=== PATIENT | female | born 1985 | race Two or more races ===

== ENCOUNTER → 2024-04-26 | Outpatient (BNVA) | payer MEDICAID, SELFPAY | END | disposition home or self-care (01) | PROVIDERS: PCP Nurse Practitioner Family; Referring Provider Nurse Practitioner Family; Visit Provider Nurse Practitioner Family | DX: Z76.89 Persons encountering health services in other specified circumstances (principal); E66.9 Obesity, unspecified; Z68.30 Body mass index [BMI] 30.0-30.9, adult; F32.1 Major depressive disorder, single episode, moderate; F41.9 Anxiety disorder, unspecified | CPT/HCPCS: 99213 ==

== ENCOUNTER → 2024-05-24 | Outpatient (BNVA) | payer MEDICAID, SELFPAY | END | disposition home or self-care (01) | PROVIDERS: PCP Nurse Practitioner Family; Referring Provider Nurse Practitioner Family; Visit Provider Nurse Practitioner Family | DX: Z00.01 Encounter for general adult medical examination with abnormal findings (principal); E66.9 Obesity, unspecified; Z68.30 Body mass index [BMI] 30.0-30.9, adult; Z71.3 Dietary counseling and surveillance; Z68.31 Body mass index [BMI] 31.0-31.9, adult; N93.9 Abnormal uterine and vaginal bleeding, unspecified; Z13.220 Encounter for screening for lipoid disorders; Z13.1 Encounter for screening for diabetes mellitus; Z11.3 Encounter for screening for infections with a predominantly sexual mode of transmission | CPT/HCPCS: 99215 ==

== ENCOUNTER → 2024-06-07 | Outpatient (BNVA) | payer MEDICAID, SELFPAY | END | disposition home or self-care (01) | PROVIDERS: PCP Nurse Practitioner Family; Referring Provider Nurse Practitioner Family; Visit Provider Nurse Practitioner Family | DX: E55.9 Vitamin D deficiency, unspecified (principal); Z71.2 Person consulting for explanation of examination or test findings; E78.5 Hyperlipidemia, unspecified; H66.91 Otitis media, unspecified, right ear | CPT/HCPCS: 99213 ==

== ENCOUNTER → 2024-07-05 | Outpatient (BNVA) | payer MEDICAID, SELFPAY | END | disposition home or self-care (01) | PROVIDERS: PCP Nurse Practitioner Family; Referring Provider Nurse Practitioner Family; Visit Provider Nurse Practitioner Family | DX: Z71.3 Dietary counseling and surveillance (principal); E66.9 Obesity, unspecified; Z68.31 Body mass index [BMI] 31.0-31.9, adult | CPT/HCPCS: 99213 ==

== ENCOUNTER → 2024-07-27 | Outpatient (BNVA) | payer MEDICAID, SELFPAY | END | disposition home or self-care (01) | PROVIDERS: PCP Nurse Practitioner Family; Referring Provider Nurse Practitioner Family; Visit Provider Nurse Practitioner Family | DX: N39.0 Urinary tract infection, site not specified (principal); N76.0 Acute vaginitis | CPT/HCPCS: 99215 ==

== ENCOUNTER → 2024-08-02 | Outpatient (BNVA) | payer MEDICAID, SELFPAY | END | disposition home or self-care (01) | PROVIDERS: PCP Nurse Practitioner Family; Referring Provider Nurse Practitioner Family; Visit Provider Nurse Practitioner Family | DX: Z71.3 Dietary counseling and surveillance (principal) | CPT/HCPCS: 99213 ==

== ENCOUNTER → 2024-08-07 | Outpatient (BNVA) | payer MEDICAID, SELFPAY | END | disposition home or self-care (01) | PROVIDERS: PCP Nurse Practitioner Family; Referring Provider Nurse Practitioner Family; Visit Provider Nurse Practitioner Family | DX: Z71.2 Person consulting for explanation of examination or test findings (principal); N76.0 Acute vaginitis | CPT/HCPCS: 99212; G0463 ==

== ENCOUNTER → 2024-08-24 | Outpatient (CLI) | payer MEDICAID, SELFPAY ==
--- NOTE | 2024-08-24 10:30 | XR_ITS ---
Examination: Pelvic ultrasound, transabdominal, complete Technique: Transabdominal ultrasound of the pelvis performed using grayscale imaging Date and time of exam: August 24, 2024 1012 hours INDICATIONS: Vaginal bleeding irregular heavy menses 10 years FINDINGS: Uterus 10.6 cm endometrial stripe 1.5 cm No uterine mass or intrauterine gestation Right ovary 3.4 cm arterial flow Left ovary 3.2 cm arterial flow IMPRESSION: Negative study
== END | disposition home or self-care (01) ==
PROVIDERS: PCP Nurse Practitioner Family; Referring Provider Nurse Practitioner Family; Visit Provider Nurse Practitioner Family
DX: N92.4 Excessive bleeding in the premenopausal period (principal)
CPT/HCPCS: 76856

== ENCOUNTER → 2024-08-30 | Outpatient (BNVA) | payer MEDICAID, SELFPAY | END | disposition home or self-care (01) | PROVIDERS: PCP Nurse Practitioner Family; Referring Provider Nurse Practitioner Family; Visit Provider Nurse Practitioner Family | DX: Z71.2 Person consulting for explanation of examination or test findings (principal); N93.9 Abnormal uterine and vaginal bleeding, unspecified | CPT/HCPCS: 99213 ==

== ENCOUNTER → 2024-08-31 | Outpatient (BNVA) | payer MEDICAID, SELFPAY | END | disposition home or self-care (01) | PROVIDERS: PCP Nurse Practitioner Family; Referring Provider Nurse Practitioner Family; Visit Provider Nurse Practitioner Family | DX: N93.9 Abnormal uterine and vaginal bleeding, unspecified (principal); Z71.2 Person consulting for explanation of examination or test findings | CPT/HCPCS: 99212; G0463 ==

== ENCOUNTER → 2024-09-21 | Outpatient (BNVA) | payer MEDICAID, SELFPAY | END | disposition home or self-care (01) | PROVIDERS: PCP Nurse Practitioner Family; Referring Provider Nurse Practitioner Family; Visit Provider Nurse Practitioner Family | DX: Z71.2 Person consulting for explanation of examination or test findings (principal); E55.9 Vitamin D deficiency, unspecified | CPT/HCPCS: 99212; G0463 ==

== ENCOUNTER → 2024-09-28 | Outpatient (BNVA) | payer MEDICAID, SELFPAY | END | disposition home or self-care (01) | PROVIDERS: PCP Nurse Practitioner Family; Referring Provider Nurse Practitioner Family; Visit Provider Nurse Practitioner Family | DX: Z71.3 Dietary counseling and surveillance (principal); E66.9 Obesity, unspecified; Z68.30 Body mass index [BMI] 30.0-30.9, adult | CPT/HCPCS: 99213 ==

== ENCOUNTER → 2024-10-26 | Outpatient (BNVA) | payer MEDICAID, SELFPAY | END | disposition home or self-care (01) | PROVIDERS: PCP Nurse Practitioner Family; Referring Provider Nurse Practitioner Family; Visit Provider Nurse Practitioner Family | DX: Z71.3 Dietary counseling and surveillance (principal); E66.9 Obesity, unspecified; Z68.29 Body mass index [BMI] 29.0-29.9, adult | CPT/HCPCS: 99213 ==

== ENCOUNTER → 2024-11-08 | Outpatient (BNVA) | payer MEDICAID, SELFPAY | END | disposition home or self-care (01) | PROVIDERS: PCP Nurse Practitioner Family; Referring Provider Nurse Practitioner Family; Visit Provider Nurse Practitioner Family | DX: K59.00 Constipation, unspecified (principal) | CPT/HCPCS: 99212; G0463 ==

== ENCOUNTER → 2024-11-23 | Outpatient (BNVA) | payer MEDICAID, SELFPAY | END | disposition home or self-care (01) | PROVIDERS: PCP Nurse Practitioner Family; Referring Provider Nurse Practitioner Family; Visit Provider Nurse Practitioner Family | DX: Z71.3 Dietary counseling and surveillance (principal); E66.9 Obesity, unspecified; Z68.29 Body mass index [BMI] 29.0-29.9, adult; K59.00 Constipation, unspecified | CPT/HCPCS: 99213 ==

== ENCOUNTER → 2024-11-30 | Outpatient (BNVA) | payer MEDICAID, SELFPAY | END | disposition home or self-care (01) | PROVIDERS: PCP Nurse Practitioner Family; Referring Provider Nurse Practitioner Family; Visit Provider Nurse Practitioner Family | DX: Z12.4 Encounter for screening for malignant neoplasm of cervix (principal) | CPT/HCPCS: 99215; Q0091 ==

== ENCOUNTER → 2024-12-08 | Outpatient (BNVA) | payer MEDICAID, SELFPAY | END | disposition home or self-care (01) | PROVIDERS: PCP Nurse Practitioner Family; Referring Provider Nurse Practitioner Family; Visit Provider Nurse Practitioner Family | DX: J02.9 Acute pharyngitis, unspecified (principal) | CPT/HCPCS: 87804; 87811; 99213 ==

== ENCOUNTER 2024-12-10 12:25 | Emergency (ER) | payer MEDICAID, SELFPAY ==
[2024-12-10 12:26] VITALS: BMI 29.2
[2024-12-10 12:37] VITALS: BP 108/72; PULSE 71; RESP 17; TEMP 37.1; O2SAT 98
--- NOTE | 2024-12-10 12:49 | PD.EDURI ---
Upper Respiratory Inf. RME/HPI General Chief Complaint: Flu Like Symptoms Stated Complaint: SORE THROAT, CHILLS x 2 DAYS Time Seen by Provider: 12/10/24 12:30 Source: patient, RN notes reviewed and old records reviewed Arrival date/time: 12/10/24 12:25 Mode of arrival: ambulatory Limitations: no limitations RME / HPI RME / HPI Narrative: 39yof presents to ED for 3-day history of URI symptoms. Patient c/o congestion, cough, sore throat and headache. Son currently has similar symptoms and was recently treated for strep. No fever, shortness of breath, chest pain, nausea/vomiting or dizziness reported. Patient was evaluated in PCP clinic 2 days ago, tested negative for COVID/flu at that time. Patient states she is currently taking a Z-Richard for recent strep exposure. Ibuprofen also taken with mild relief Related Data Previous Rx's ?Medication ?Instructions ?Recorded tirzepatide (weight loss) 12.5 12.5 mg (0.5 mL) subcut QWEEK 4 11/23/24 mg/0.5 mL subcutaneous pen weeks #2 mL injector (Zepbound) azithromycin 250 mg tablet See Rx Instructions PO .COMPLEX #6 12/08/24 tabs fluticasone propionate 50 2 spray intranasal QDAY PRN 12/08/24 mcg/actuation nasal allergy symptoms 30 days #16 grams spray,suspension (Flonase Allergy Relief) guaifenesin 1,200 mg tablet, 1,200 mg PO BID PRN cough 7 days 12/08/24 extended release 12 hr (Mucinex) #14 tabs ibuprofen 600 mg tablet 600 mg PO Q8H PRN fever or pain 12/08/24 #30 tabs acetaminophen 500 mg tablet 1,000 mg (2 x 500 mg) PO Q6H PRN 12/10/24 (Tylenol Extra Strength) pain #30 tabs dextromethorphan-guaifenesin ER 60 1 tab PO Q12H PRN congestion/cough 12/10/24 mg-1,200 mg tab,extend #14 tabs release,12hr (Mucinex DM) fluticasone propionate 50 2 spray intranasal QDAY #16 grams 12/10/24 mcg/actuation nasal spray,suspension (Flonase Allergy Relief) pseudoephedrine HCl 120 mg 120 mg PO BID PRN nasal congestion 12/10/24 tablet,extended release (Sudafed #12 tabs 12 Hour) Allergies Allergy/AdvReac Type Severity Reaction Status Date / Time No Known Allergies Allergy Verified 12/10/24 12:29 Review of Systems Review of Systems Systems Reviewed: All systems reviewed, normal except as documented Constitutional Constitutional: Reports chills, Reports fever(s) and Denies headache(s) ENT Ears, Nose, Mouth, and Throat: Denies headache(s), Reports nasal congestion, Denies neck pain and Reports sore throat Cardiovascular Cardiovascular: Denies chest pain and Denies dyspnea Respiratory Respiratory: Denies dyspnea Gastrointestinal Gastrointestinal: Denies nausea and Denies vomiting Musculoskeletal Musculoskeletal: Reports myalgias and Denies neck pain Neurologic Neurologic: Denies headache(s) Past Medical History Surgical History SURGICAL: Positive Section (x3) Social History SMOKING STATUS: Never smoker SUBSTANCE USE: does not use ALCOHOL: Never Past Medical History Comments PMH COMMENT: Denies past medical history ED Exam General Limitations: Present no limitations General appearance: Present alert and in no apparent distress Head Head exam: Present atraumatic and normocephalic Eye Eye exam: Present normal appearance, PERRL and EOMI ENT ENT exam: Present mucous membranes moist, TM's normal bilaterally and other (Moderate UAC. Moderate pharyngeal erythema. 2+ tonsillar swelling b/l without exudate, uvula midline) Neck Neck exam: Present normal inspection and full ROM; Absent tenderness, meningismus or lymphadenopathy Chest Chest inspection: Present normal inspection and symmetric chest wall rise Respiratory Respiratory exam: Present normal lung sounds bilaterally; Absent respiratory distress, wheezes or stridor Cardiovascular Cardiovascular exam: Present regular rate and normal rhythm Extremities Exam Extremities exam: Present normal inspection and full ROM Neurological Exam Neurological exam: Present alert and oriented X3 Psychiatric Psychiatric exam: Present normal affect and normal mood Skin Skin exam: Present warm, dry, intact and normal color Course Quality Measures none Orders Category Date Time Status Acetaminophen Tab [Tylenol ES Tab] Med 12/10/24 12:49 Discontinued 1,000 mg PO X1 ONE Dexamethasone Inj [Decadron Inj] Med 12/10/24 12:49 Discontinued 10 mg PO X1 ONE Vital Signs Vital signs: Vital Signs Temperature 98.7 F 12/10/24 12:37 Pulse Rate 71 12/10/24 12:37 Respiratory Rate 17 12/10/24 12:37 Blood Pressure 108/72 12/10/24 12:37 Pulse Oximetry (%) 98 12/10/24 12:37 Oxygen Delivery Method Room Air 12/10/24 12:37 Upper Respiratory Infection MDM Narrative MDM Narrative:: 39yof presents to ED for 3-day history of URI symptoms. Patient c/o congestion, cough, sore throat and headache. Son currently has similar symptoms and was recently treated for strep. No fever, shortness of breath, chest pain, nausea/vomiting or dizziness reported. Patient was evaluated in PCP clinic 2 days ago, tested negative for COVID/flu at that time. Patient states she is currently taking a Z-Richard for recent strep exposure. Ibuprofen also taken with mild relief Patient is nontoxic-appearing, afebrile, vitals are stable. No evidence of respiratory distress or hypoxia. Encouraged rest, fluids, symptomatic treatment, fever management prn. Instructed to complete her Z-Richard as prescribed. Stable for discharge, RTED precautions given. Patient data External records reviewed:: [facility] previous records (pcp clinic visit 12/08/24 for pharyngitis) Clinical information provided by:: patient Social determinants that could affect healthcare access:: none Patient has the following chronic illnesses:: none How is presenting disease/condition affected by chronic disease/condition?: no chronic disease Evaluation data The following diagnostics were reviewed and interpreted by me:: other (specify) (None) Lab and/or radiology exams considered but not ordered:: covid/flu: negative tests on 12/08 strep: patient already being treated for strep exposure CXR: lungs clear, no respiratory distress or hypoxia Interpretation Summary: na Medications / Prescriptions Medications or Prescriptions considered but not ordered:: none Medication administrations:: Medication Administration History Discontinued Medications Acetaminophen (Acetaminophen 500 Mg Tablet) 1,000 mg PO X1 ONE Stop: 12/10/24 12:50 Last Admin: 12/10/24 12:59 Dose: 1,000 mg Documented By: Dexamethasone Sodium Phosphate (Dexamethasone Sod Phos Inj 10 Mg/Ml Vial) 10 mg PO X1 ONE Stop: 12/10/24 12:50 Last Admin: 12/10/24 13:03 Dose: Not Given Documented By: Non-Admin Reason: Patient Refused patient declined the decadron Consultations Consultation(s) initiated? (list below): No Diagnosis Upper Respiratory Differential Diagnosis: other (URI, covid, flu, pharyngitis, tonsillitis, viral illness, bronchitis, pneumonia) Most likely diagnosis given after review of the tests above:: URI, pharyngitis Admission Indicated Admission indicated?: not indicated Admission Request Was there a request for admission?: No Disposition Plan Disposition Plan: Discharge Discharge Attestation Discharge Attestation: The patient and all family members were given an opportunity to ask questions and understood the discharge instructions. Discharge instructions specifically effects, indications for sooner follow up or return to the emergency department, and the expected course of current diagnosis. Patient condition: Stable Discharge Plan Plan Patient Disposition: HOME (Self Care) Patient condition on transfer: Stable Prescriptions/Referrals Prescriptions/Med Rec: New pseudoephedrine HCl [Sudafed 12 Hour] 120 mg tablet extended release 120 mg PO BID PRN (Reason: nasal congestion) Qty: 12 0RF acetaminophen [Tylenol Extra Strength] 500 mg tablet 1,000 mg PO Q6H PRN (Reason: pain) Qty: 30 0RF dextromethorphan-guaifenesin [Mucinex DM] 60-1,200 mg tablet extended release 12 hr 1 tab PO Q12H PRN (Reason: congestion/cough) Qty: 14 0RF fluticasone propionate [Flonase Allergy Relief] 50 mcg/actuation spray,suspension 2 spray intranasal QDAY Qty: 16 0RF Rx Instructions: administer into each nostril No Action ibuprofen 600 mg tablet 600 mg PO Q8H PRN (Reason: fever or pain) Qty: 30 0RF guaifenesin [Mucinex] 1,200 mg tablet extended release 12hr 1,200 mg PO BID PRN (Reason: cough) 7 Days Qty: 14 0RF fluticasone propionate [Flonase Allergy Relief] 50 mcg/actuation spray,suspension 2 spray intranasal QDAY PRN (Reason: allergy symptoms) 30 Days Qty: 16 0RF Rx Instructions: administer into each nostril azithromycin 250 mg tablet See Rx Instructions PO .COMPLEX Qty: 6 0RF Rx Instructions: For 250 mg dose pack: take 500 mg today (day 1), then 250 mg for 4 days (days 2-5) PO Zepbound 12.5 mg/0.5 mL pen injector 12.5 mg subcut QWEEK 28 Days Qty: 2 0RF Problem List Clinical Impression: Pharyngitis, URI (upper respiratory infection), Cough Patient/Caregiver Discharge Instructions Education Materials: Self-Care for Sore Throats Additional Instructions: You may get cepacol lozenges [id number] to help with throat pain. Print Language: Wallisian Stand Alone Forms: Lisa Award Info., Work/School Release, Patient Portal Info Letter PA/EXECUTIVE ASSISTANT TO GENERAL COUNSEL Supervising Physician PA/EXECUTIVE ASSISTANT TO GENERAL COUNSEL Supervising Physician: Bernadette
[2024-12-10] MEDS: ACETAMINOPHEN 500 MG TABLET 1000 MG PO (12:59)
== END 2024-12-10 13:11 | disposition home or self-care (01) ==
PROVIDERS: Emergency Provider Emergency Medicine; PCP Nurse Practitioner Family
DX: J02.9 Acute pharyngitis, unspecified (principal)
CPT/HCPCS: 99282; A9270

== ENCOUNTER → 2024-12-12 | Outpatient (BNVA) | payer MEDICAID, SELFPAY | END | disposition home or self-care (01) | PROVIDERS: PCP Nurse Practitioner Family; Referring Provider Nurse Practitioner Family; Visit Provider Nurse Practitioner Family | DX: J02.9 Acute pharyngitis, unspecified (principal) | CPT/HCPCS: 99214 ==

== ENCOUNTER → 2024-12-14 | Outpatient (BNVA) | payer MEDICAID, SELFPAY | END | disposition home or self-care (01) | PROVIDERS: PCP Nurse Practitioner Family; Referring Provider Nurse Practitioner Family; Visit Provider Nurse Practitioner Family | DX: Z09 Encounter for follow-up examination after completed treatment for conditions other than malignant neoplasm (principal); J06.9 Acute upper respiratory infection, unspecified; R19.7 Diarrhea, unspecified | CPT/HCPCS: 99212; G0463 ==

== ENCOUNTER → 2024-12-15 | Outpatient (BNVA) | payer MEDICAID, SELFPAY | END | disposition home or self-care (01) | PROVIDERS: PCP Nurse Practitioner Family; Referring Provider Nurse Practitioner Family; Visit Provider Nurse Practitioner Family | DX: Z71.2 Person consulting for explanation of examination or test findings (principal); B34.8 Other viral infections of unspecified site | CPT/HCPCS: 99212; G0463 ==

== ENCOUNTER → 2025-03-06 | Outpatient (BNVA) | payer MEDICAID, SELFPAY | END | disposition home or self-care (01) | PROVIDERS: PCP Nurse Practitioner Family; Referring Provider Nurse Practitioner Family; Visit Provider Nurse Practitioner Family | DX: J06.9 Acute upper respiratory infection, unspecified (principal) | CPT/HCPCS: 87804; 87811; 99212; 99213 ==

== ENCOUNTER → 2025-03-07 | Outpatient (BNVA) | payer MEDICAID, SELFPAY | END | disposition home or self-care (01) | PROVIDERS: PCP Nurse Practitioner Family; Referring Provider Nurse Practitioner Family; Visit Provider Nurse Practitioner Family | DX: J02.0 Streptococcal pharyngitis (principal) | CPT/HCPCS: 99213 ==

== ENCOUNTER 2025-03-17 16:14 | Emergency (ER) | payer MEDICAID, SELFPAY ==
[2025-03-17 16:14] VITALS: BMI 30.2
[2025-03-17 17:02] VITALS: BP 111/71; PULSE 64; RESP 18; TEMP 36.7; O2SAT 97
--- NOTE | 2025-03-17 17:07 | PD.EDRME ---
Rapid Medical Screening Exam RME Arrival date/time: 03/17/25 16:14 This is a 39-year-old female that comes into the emergency room with complaints of urinary frequency urgency and dysuria has been going on since yesterday. Patient also complains of vaginal discharge with some odor and also states she feels very itchy. Patient reports that she has had a yeast infection and bacterial vaginosis in the past as well to. Patient thinks she has a UTI as well. I have greeted and performed a focused initial assessment of this patient. Initial appropriate labs ordered at this time. A comprehensive ED assessment and evaluation of the patient and analysis of all test and completion of medical decision making process will be conducted by additional ED provider. Chief Complaint: Urogenital-Female Time Seen by Provider: 03/17/25 16:59 Vital signs: Vital Signs Temperature 98.1 F 03/17/25 17:02 Pulse Rate 64 03/17/25 17:02 Respiratory Rate 18 03/17/25 17:02 Blood Pressure 111/71 03/17/25 17:02 Pulse Oximetry (%) 97 03/17/25 17:02 Oxygen Delivery Method Room Air 03/17/25 17:02 Exam: Alert and oriented breathing unlabored Clinical Impression: Dysuria
[2025-03-17 17:12] LABS: Collection Type, Urine Voided
[2025-03-17 17:22] LABS: HCG Qualitative,Urine Negative
[2025-03-17 17:23] LABS: Bacteria,Urine Rare; Bilirubin,Urine Negative (Negative); Blood,Urine Negative (Negative); Clarity,Urine Clear (Clear/Hazy); Color,Urine Lt-Yellow (Lt Yel-Yel); Culture Indicated,Urine Not Indicated; Glucose, Urine Negative (Negative); Ketones,Urine Negative (Negative); Leukocyte Esterase,Urine Negative (Negative); Nitrite,Urine Negative (Negative); PH,Urine 7.0 (5.0-7.0); Protein,Urine Negative (Neg - Trace); RBC,Urine 2 /hpf (0-3); Specific Gravity,Urine 1.026 (1.001-1.035); Squamous Epithelial Cell,Urine 5 /hpf (0-5); Urobilinogen,Urine Negative mg/dL (0.0-1.0); WBC,Urine 1 /hpf (0-5)
--- NOTE | 2025-03-17 18:36 | PD.EDFMALE ---
ED Female Urogenital RME/HPI General Chief complaint: Urogenital-Female Stated complaint: DYSURIA X2 DAYS Time Seen by Provider: 03/17/25 16:59 Arrival date/time: 03/17/25 16:14 RME / HPI RME / HPI Narrative: 03/17/25 16:14 This is a 39-year-old female that comes into the emergency room with complaints of urinary frequency urgency and dysuria has been going on since yesterday. Patient also complains of vaginal discharge with some odor and also states she feels very itchy. Patient reports that she has had a yeast infection and bacterial vaginosis in the past as well to. Patient thinks she has a UTI as well. I have greeted and performed a focused initial assessment of this patient. Initial appropriate labs ordered at this time. A comprehensive ED assessment and evaluation of the patient and analysis of all test and completion of medical decision making process will be conducted by additional ED provider. DR. BOWLING MAIN ED EVALUATION: Patient presents with suspected UTI, reports dysuria of several days duration, also notes vaginal discharge and pruritus. No urgency or frequency of urination. Denies pelvic pain, fever, chills, or flank pain. LMP 3 weeks [employer]. Patient is currently sexually active. PMH: Unremarkable PSH: C-Sections x3, Tubal Ligation, and Cholecystectomy Allergies: None Social: Negative Exam: Alert and oriented breathing unlabored Impression: Dysuria Related Data Previous Rx's ?Medication ?Instructions ?Recorded cetirizine 10 mg tablet (Zyrtec) 10 mg PO QDAY 30 days #30 tabs 03/06/25 fluticasone propionate 50 1 spray intranasal QDAY PRN nasal 03/06/25 mcg/actuation nasal congestion 30 days #16 grams spray,suspension (Flonase Allergy Relief) ibuprofen 600 mg tablet 600 mg PO Q8H PRN fever #30 tabs 03/06/25 Allergies Allergy/AdvReac Type Severity Reaction Status Date / Time No Known Allergies Allergy Verified 03/17/25 16:16 Review of Systems Review of Systems Systems Reviewed: All systems reviewed, normal except as documented Past Medical History Past Medical History ENDOCRINE: Positive Endocrine Disorders Family History FAMILY HISTORY: Positive Family Cancer Surgical History SURGICAL: Positive Tubal Ligation, Section (x3) and Hx Cholecystectomy ED Exam Narrative Physical exam: GEN. APPEARANCE: The patient is alert awake oriented X-3 under no distress, lying down comfortably, does not look ill/toxic. Patient has good eye contact. Patient is cooperative. VITALS: All vitals were reviewed and the pulse ox is 97%, which is normal according to my interpretation HEENT: Normocephalic, atraumatic and nontender. Pupils are equal and reactive. Oral mucosa is moist. NECK: Supple, nontender, no meningismus, no JVD. There is no thyromegaly and no lymphadenopathy. CHEST: Nontender on palpation no deformity and no crepitus. CARDIOVASCULAR: Heart regular rhythm, no murmur or gallop rub or extra beats. LUNGS: Clear to auscultation bilaterally with symmetrical chest rise. No laboring tachypnea or wheezing. No intercostal subcostal retraction. No rales and no rhonchi. ABDOMEN: Soft, flat, nontender to palpation, no guarding or rebound tenderness. There are no abnormal masses palpated. No pulsatile masses or bruits. Active and normal bowel sounds. SPECULUM: Slightly purulent discharge within the vault, no cervical margin tenderness. EXTREMITIES: Normal inspection and palpation. No edema. No cyanosis. Patient is able to move all 4 extremities well SKIN: Warm and dry, no rashes noted. MUSCULOSKELETAL: No lumbar or midline bony tenderness. There is no CVA tenderness. No paraspinal muscle spasm or tenderness. NEURO: Cranial nerves II through XII grossly intact. There are no focal neurologic deficits noted. GCS is 15 PSYCHIATRIC: Patient is in normal mood and affect, cooperative. LYMPHATICS: No major lymphadenopathy noted. Course Quality Measures none Orders Category Date Time Status HCG Qualitative,Urine Stat Lab 03/17/25 17:09 Completed Urinalysis, C/S if Indicated Stat Lab 03/17/25 17:09 Completed Wet Prep Stat Lab 03/17/25 19:32 Ordered Vital Signs Vital signs: Vital Signs Temperature 98.1 F 03/17/25 17:02 Pulse Rate 64 03/17/25 17:02 Respiratory Rate 18 03/17/25 17:02 Blood Pressure 111/71 03/17/25 17:02 Pulse Oximetry (%) 97 03/17/25 17:02 Oxygen Delivery Method Room Air 03/17/25 17:02 Urogenital - Female MDM Narrative MDM Narrative:: Scribe Attestation: I, Bindu Henson, am scribing for and in the presence of Dr. Bowling. Provider Notation: Although this document has been carefully reviewed, there may still be some phonetic and other typographical errors. These errors are purely grammatical due to imperfections in the software program and should not be construed in any way to compromise the substance of the patient's medical care during this visit. Patient presents with suspected UTI, reports dysuria of several days duration, also notes vaginal discharge and pruritus. No urgency or frequency of urination. Please see PE findings. UA was unremarkable for evidence of infection and test was negative. A wet prep sent for analysis and is not immediately available at this time. Will treat imperically for likely Gardnerella. Will prescribe Metro gel and Pyridium. Close f/u with [facility] recommended. Final diagnosis is nonspecific vaginitis. Patient data External records reviewed:: [facility] previous records (Reviewed prior ED records from 12/10/24. Patient was seen for Cough.) Clinical information provided by:: patient Social determinants that could affect healthcare access:: none Patient has the following chronic illnesses:: None reported. How is presenting disease/condition affected by chronic disease/condition?: no chronic disease Evaluation data The following diagnostics were reviewed and interpreted by me:: lab results Lab and/or radiology exams considered but not ordered:: None Interpretation Summary: See MDM above. Medications / Prescriptions Medications or Prescriptions considered but not ordered:: None Medication administrations:: See above if any. Consultations Consultation(s) initiated? (list below): No Diagnosis Urogenital Female Differential Diagnosis: urinary tract infection, bacterial vaginosis, trichomoniasis, cervicitis, vaginitis and cystitis Most likely diagnosis given after review of the tests above:: Nonspecific vaginitis Admission Indicated Admission indicated?: not indicated Explain why admission is indicated or not indicated:: Patient does not meet admission criteria. Admission Request Was there a request for admission?: No Disposition Plan Disposition Plan: Discharge Discharge Attestation Discharge Attestation: The patient and all family members were given an opportunity to ask questions and understood the discharge instructions. Discharge instructions specifically effects, indications for sooner follow up or return to the emergency department, and the expected course of current diagnosis. Patient condition: Stable Discharge Plan Plan Patient Disposition: HOME (Self Care) Discharge Disposition comment: Stable Prescriptions/Referrals Prescriptions/Med Rec: No Action cetirizine [Zyrtec] 10 mg tablet 10 mg PO QDAY 30 Days Qty: 30 0RF ibuprofen 600 mg tablet 600 mg PO Q8H PRN (Reason: fever) Qty: 30 0RF fluticasone propionate [Flonase Allergy Relief] 50 mcg/actuation spray,suspension 1 spray intranasal QDAY PRN (Reason: nasal congestion) 30 Days Qty: 16 0RF Rx Instructions: administer into each nostril Referrals: Phan [facility] CHLORINE LIQUEFACTION,Kenzie Durham [facility] [employer] [employer]FACTION [Primary Care Provider, Family Practice] - In 1 week Problem List Clinical Impression: Vaginitis Impression comment: Nonspecific vaginitis Patient/Caregiver Discharge Instructions Discharge Activity: activity as tolerated Education Materials: ED Bacterial Vaginosis (BV) Additional Instructions: Medication as directed. Follow-up with [facility] physician within 1 to 2 weeks return for fever increasing pelvic pain or general worse condition. Print Language: Arabic Stand Alone Forms: Lisa Award Info., Patient Portal Info Letter
[2025-03-17 19:50] VITALS: BP 116/72; PULSE 72; RESP 16; TEMP 36.8; O2SAT 98
== END 2025-03-17 19:51 | disposition home or self-care (01) ==
PROVIDERS: Nurse Practitioner Family; Emergency Provider Emergency Medicine; PCP Nurse Practitioner Family
DX: N76.0 Acute vaginitis (principal)
CPT/HCPCS: 81001; 81025; 87210; 99282

== ENCOUNTER → 2025-03-19 | Outpatient (BNVA) | payer MEDICAID, SELFPAY | END | disposition home or self-care (01) | PROVIDERS: PCP Nurse Practitioner Family; Referring Provider Nurse Practitioner Family; Visit Provider Nurse Practitioner Family | DX: N76.0 Acute vaginitis (principal); Z09 Encounter for follow-up examination after completed treatment for conditions other than malignant neoplasm | CPT/HCPCS: 99213 ==